=== PATIENT | female | born 1995 | race Caucasian/White ===

== ENCOUNTER 2022-04-02 08:44 | Outpatient (REF) | payer OTHER, SELFPAY ==
[2022-04-02 11:31] LABS: Hematocrit 36.6 % (37.0-47.0); Hemoglobin 12.2 g/dl (12.0-16.0); Mean Corpuscular HGB Conc 33.3 g/dl (31.0-35.0); Mean Corpuscular Hemoglobin 29.9 pg (27.0-33.0); Mean Corpuscular Volume 89.7 fL (80.0-98.0); Mean Platelet Volume 10.7 fL (9.4-12.3); Platelet Count 241 X10*3/uL (160-400); Red Blood Count 4.08 X10*6/uL (4.20-5.50); Red Cell Distribution Width 13.3 % (11.0-16.0); White Blood Count 4.9 X10*3/uL (4.8-10.8)
[2022-04-02 11:33] LABS: Alanine Aminotransferase 11 U/L (0-31); Albumin Level 4.5 g/dL (3.5-5.0); Alkaline Phosphatase 59 U/L (39-117); Anion Gap 12 (12-20); Aspartate Amino Transferase 17 U/L (5-31); Bilirubin Total 0.6 mg/dL (0.0-1.0); Blood Urea Nitrogen 11 mg/dL (9-16); Calcium 9.1 mg/dL (8.4-10.2); Carbon Dioxide 25 mmol/L (22-29); Chloride 106 mmol/L (96-108); Cholesterol 226 mg/dL; Estimated Glomerular Filt Rate > 60; Glucose Fasting 91 mg/dL (60-99); HDL Cholesterol 78 mg/dL; LDL Cholesterol Calculated 134 mg/dl; Potassium 3.9 mmol/L (3.3-5.1); Sodium 139 mmol/L (135-145); Total Protein 7.3 g/dL (6.5-8.0); Triglycerides 71 mg/dL
[2022-04-02 11:54] LABS: TSH reflex Free T4 2.05 uIU/mL (0.32-4.0)
[2022-04-07 15:46] LABS: Vitamin D 25-OH, D2 <4 ng/mL; Vitamin D 25-OH, D3 41 ng/mL; Vitamin D 25-OH, Total 41 ng/mL (30-100)
== END 2022-04-02 08:45 | disposition home or self-care (01) ==
LOC: HO.WFDLDS 08:44
PROVIDERS: Visit Provider Hospitalist
DX: Z00.00 Encounter for general adult medical examination without abnormal findings (principal); E55.9 Vitamin D deficiency, unspecified; Z13.220 Encounter for screening for lipoid disorders; Z13.29 Encounter for screening for other suspected endocrine disorder
CPT/HCPCS: 36415; 80053; 80061; 82306; 84443; 85027

== ENCOUNTER 2023-03-12 10:04 | Outpatient (REF) | payer OTHER, SELFPAY ==
[2023-03-12 12:16] LABS: Cholesterol 222 mg/dL; HDL Cholesterol 76 mg/dL; LDL Cholesterol Calculated 129 mg/dl; Triglycerides 89 mg/dL
== END 2023-03-12 10:05 | disposition home or self-care (01) ==
LOC: HO.WFDLDS 10:04
PROVIDERS: Visit Provider Hospitalist
DX: E78.00 Pure hypercholesterolemia, unspecified (principal)
CPT/HCPCS: 36415; 80061

== ENCOUNTER 2023-11-23 09:22 | Outpatient (AMB) | payer BC, SELFPAY ==
--- NOTE | 2023-11-23 09:26 | A.OFFPC_ITS ---
Vital Signs 11/23/23 09:27 Height 5 ft Weight 139 lb BMI 27.1 BP 112/58 L Blood Pressure Location Lt brachial Position Sitting Respiration 13 Pulse 98 Pulse Source Pulse Oximeter Pulse Oximetry (%) 99 Oxygen Delivery Method Room Air Intake Visit Reasons: follow up/ Referral Intake Note: Patient is here requesting a referral for OBGYN- Patient see's Alay[facility] in [place]. Patient reports she is 38 weeks right now and this is for billing purposes. Patient reports no other concerns at this time. 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 Accompanied by: Self / Same As Patient Allergies No Known Allergies Allergy (Verified 11/23/23 09:41) Medication List - Last Reconciled 11/23/23 by TYRONE FreedmanP- cholecalciferol (vitamin D3) 125 mcg PO DAILY docosahexaenoic acid ( DHA) mg PO ferrous sulfate (Feosol) 325 mg PO Q OTHER DAY magnesium oxide (Uro-Mag) 84.5 mg PO DAILY sertraline 100 mg PO DAILY sumatriptan succinate take 1 tab at onset of headache; if no relief, may repeat 1 tab after at least 2 hrs; max = 2 tabs/24 hrs PO; Tobacco use date assessed: 11/23/23 Dental Screening Dental Screen Date: 11/23/23 Did you have a dental visit in the last 12 months?: Yes Did you have a dental problem in the last 6 months where you did not have access to dental care?: No Was dental information given to patient?: Patient has dentist HPI HPI Comments History of Present Illness Details 28-year-old female with MDD, GERD, vitam in-D deficiency, migraine headache with aura, hyperlipidemia Specialists [facility] [address], [place] [address] Psychiatry Health Maintenance: Pap 2022 WNL Vaccines declined flu shot, Tdap 2022 Here today for complete physical exam Currently 38 weeks with baby 3. Another boy. May need a . Migraines with aura controlled during . Does admit return in the period. Reports that her psychiatrist is also a neurologist who helps to manage this. MDD stable on sertraline Vitamin-D deficiency taking meds as directed Lipid panel 03/12/2023, full set of labs 04/02/2022 REPLACED BY [facility] Medical History Constipation by delayed colonic transit Muscle spasms of neck Family History Father Pre-diabetes High blood pressure Migraines Mother High blood pressure Social History Household Members: Spouse Both parents involved: Yes Caregiver staying overnight: No Housing: House Are you a primary acute care nursing assistant to a significant other at home: No Do you presently have visiting nurse or other home services: No 75 years or older and lives alone: No Alcohol intake: never Comment: Patient Tobacco Use Status: Never used Tobacco e-Cigarette/Vaping Use: Never Used Second Hand Smoke Exposure: No service: No Current occupational status: employed Current occupational exposures/hazards: No Sexual orientation: Straight/Heterosexual Gender identity: Female Cognitive needs: No Hearing needs: No Vision needs: No Questionnaire PHQ-9 Over the last 2 weeks, how often have you been bothered by any of the following problems? 1. Little interest or pleasure in doing things: not at all 2. Feeling down, depressed, or hopeless: not at all 3. Trouble falling or staying asleep, or sleeping too much: not at all 4. Feeling tired or having little energy: not at all 5. Poor appetite or overeating: not at all 6. Feeling bad about yourself - or that you are a failure or have let yourself or your family down: not at all 7. Trouble concentrating on things, such as reading the newspaper or watching television: not at all 8. Moving or speaking so slowly that other people could have noticed. Or the opposite - being so fidgety or restless that you have been moving around a lot more than usual: not at all 9. Thoughts that you would be better off or of hurting yourself in some way: not at all Total score: 0 Depression Screening Interpretation: Negative Depression Screening [place]: [place] 11901 - PHQ-9 Billing: Yes Source: Developed by Drs. Servando Flores, Claire Hart, Adam Mcgee and colleagues, with an educational mckenzie from [employer]. Thrive Questionnaire Date Thrive assessed: 09/11/22 KATEY-7 AMB Questionnaire KATEY-7 Date KATEY - 7 assessed: 04/28/22 Feeling nervous, anxious, or on edge: 0 = Not at all Not being able to stop or control worryin = Not at all Worrying too much about different things: 0 = Not at all Trouble relaxin = Not at all Being so restless that it is hard to sit still: 0 = Not at all Becoming easily annoyed or irritable: 0 = Not at all Feeling afraid as if something awful might happen: 0 = Not at all Total KATEY-7 score (0-4 normal; 5-9 mild; 10-14 moderate; 15-21 severe): 0 Source: Developed by Drs. Servando Flores, Claire Hart, Adam Mcgee and colleagues, with an educational mckenzie from [employer]. KATEY-7 Assessment Billing KATEY-7 Assessment Tool: KATEY-7 Assessment 18148 Review of Systems Const Details: Constitutional: Denies fever. Skin: Denies rash. Eye: Denies eye pain. ENMT: Denies sore throat and nasal congestion. Respiratory: Denies shortness of breath and cough. Gastrointestinal: Denies nausea, vomiting or abdominal pain. Cardiovascular: Denies chest pain and syncope. Genitourinary: Denies dysuria. Musculoskeletal: Denies back pain and extremity pain. Neurologic: Denies headaches, confusion, and weakness. Psychiatric: Denies suicidal thoughts and substance abuse. Allergy/ Immunologic: Denies impaired immunity. Physical exam (Primary Care) Vital Signs: Last Vital Signs Pulse 98 11/23/23 09:27 Resp 13 11/23/23 09:27 BP 112/58 L 11/23/23 09:27 Pulse Ox 99 11/23/23 09:27 Oxygen Delivery Method Room Air 11/23/23 09:27 BMI result Body Mass Index 27.1 Tobacco/Smoking Status: Tobacco use Status Tobacco use date assessed 11/23/23 11/23/23 09:36 Patient Tobacco Use Status Never used Tobacco 11/23/23 09:36 e-Cigarette/Vaping Use Never Used 11/23/23 09:36 Depression Screening Interpretation: Negative Thrive Assessment: Date of Thrive Assessment Date Thrive assessed 12/08/22 02/19/24 09:36 Const Other: General: Well developed, well nourished, in no acute distress. Appears stated age. Head: Normocephalic, atraumatic. Eyes: Pupils are equal, round and reactive to light and accommodation. Conjunctivae are clear. Vision grossly normal. Ears: TMs clear AU, EACS WNL Nose: Patent, without discharge. Mouth: There are no ulcers or lesions noted. No inflammation, no post nasal drip, no plaques nor exudates. Neck: Supple, no adenopathy or thyromegaly. Lungs: Clear to auscultation bilaterally. No rales, rhonchi or wheeze noted. Good air flow in all guzman. Heart: Regular rate and rhythm. No murmurs, click, rubs or gallops are noted. Abdomen: Gravid abdomen Musculoskeletal: Joints are nontender, without swelling, redness, or effusions. Range of motion is observed to be normal. Pulses: Peripheral pulses are equal and palpable bilaterally. Extremities: No clubbing, cyanosis nor edema is noted. Neurologic: Gait and station normal. Cranial Nerves 2-12 intact. Motor strength grossly symmetrical and intact. No sensory loss. Balance normal. Skin: No rashes, ulcers, or lesions noted. Turgor is good. Skin color is good. Hair and nails are without abnormalities. Psych: Normal eye contact, affect and mood appropriate, and normal interactions. Patient is alert and appropriate to context. 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 Thirty-eight weeks . May require a C- section. Referral placed as needed (3) Vitamin D deficiency: Comment: Currently maintained vitamin-D 325 mcg daily. Continue Code(s): E55.9 - Vitamin D deficiency, unspecified (4) Migraine headache with aura: Comment: Psychiatry manages this. She is currently using sumatriptan as needed only. She does report trying propranolol in the past as a preventative with some relief. She has no migraines during . Advised to follow up with myself or Psychiatry if the migraines return and she needs assistance Code(s): G43.109 - Migraine with aura, not intractable, without status migrainosus Qualifiers: Status migrainosus presence: without status migrainosus Intractability: not intractable Qualified Code(s): G43.109 - Migraine with aura, not intractable, without status migrainosus (5) MDD (major depressive disorder): Comment: Managed on sertraline and active for Psychiatry Code(s): F32.9 - Major depressive disorder, single episode, unspecified Qualifiers: Major depression recurrence: recurrent Active/Remission status: currently active Major depression episode severity: mild Qualified Code(s): F33.0 - Major depressive disorder, recurrent, mild (6) KATEY (generalized anxiety disorder): Comment: Managed on sertraline and active with Psychiatry Code(s): F41.1 - Generalized anxiety disorder (7) Hyperlipidemia: Comment: Noted on labs in 2021 as well as 2022. We will need to look at this when she is not and follow up as needed. Code(s): E78.5 - Hyperlipidemia, unspecified Qualifiers: Hyperlipidemia type: mixed hyperlipidemia Qualified Code(s): E78.2 - Mixed hyperlipidemia Orders: Referrals REGISTERED NURSE FLOAT POOL Referral Z3A.38 - 38 weeks gestation of Review Flu Vaccine not done: patient reason Coding Level of Care Code Est Pt Prev Care 18-39y(21671) Diagnoses Normal physical exam Z00.00 38 weeks gestation of Z3A.38 Weeks of gestation: 38 weeks Vitamin D deficiency E55.9 Migraine with aura and without status migrainosus, not intractable G43.109 Status migrainosus presence: without status migrainosus Intractability: not intractable Mild episode of recurrent major depressive disorder F33.0 Major depression recurrence: recurrent Active/Remission status: currently active Major depression episode severity: mild KATEY (generalized anxiety disorder) F41.1 Mixed hyperlipidemia E78.2 Hyperlipidemia type: mixed hyperlipidemia Additional Codes KATEY-7 Assessment Billing - KATEY-7 Assessment Tool: KATEY-7 Assessment [id number] ([id number])
[2023-11-23 09:27] VITALS: BP 112/58; PULSE 98; RESP 13; O2SAT 99; BMI 27.1
== END 2023-11-23 09:50 | disposition home or self-care (01) ==
PROVIDERS: PCP Family Medicine; Visit Provider Nurse Practitioner Family
DX: Z00.00 Encounter for general adult medical examination without abnormal findings (principal); Z3A.38 38 weeks gestation of pregnancy; F33.0 Major depressive disorder, recurrent, mild; E55.9 Vitamin D deficiency, unspecified; G43.109 Migraine with aura, not intractable, without status migrainosus; F41.1 Generalized anxiety disorder; E78.2 Mixed hyperlipidemia
CPT/HCPCS: 99395

== ENCOUNTER 2024-12-02 09:19 | Outpatient (AMB) | payer BC, SELFPAY ==
--- NOTE | 2024-12-02 09:20 | A.OFFPC_ITS ---
Vital Signs 12/02/24 09:23 Height 50 ft Weight 112 lb 6 oz BMI 0.2 BP 102/64 Blood Pressure Location Lt brachial Position Sitting Respiration 12 Pulse 86 Pulse Source Pulse Oximeter Temp 96.9 F Temp Source Oral Pulse Oximetry (%) 97 Oxygen Delivery Method Room Air Intake Visit Reasons: PE Intake Note: annual physical Resident Medical Officer Required: No Allergies No Known Allergies Allergy (Verified 12/02/24 09:29) Medication List - Last Reconciled 12/02/24 by Edna Boyce, STEAM SHOVEL OPERATOR- [id number] 50-325-40 mg 1 tab PO Q6H PRN cholecalciferol (vitamin D3) 125 mcg PO DAILY docosahexaenoic acid ( DHA) mg PO ferrous sulfate (Feosol) 325 mg PO Q OTHER DAY magnesium oxide (Uro-Mag) 84.5 mg PO DAILY sertraline 100 mg PO DAILY sumatriptan succinate take 1 tab at onset of headache; if no relief, may repeat 1 tab after at least 2 hrs; max = 2 tabs/24 hrs PO; Tobacco use date assessed: 12/02/24 Dental Screening Dental Screen Date: 12/02/24 Did you have a dental visit in the last 12 months?: Yes Did you have a dental problem in the last 6 months where you did not have access to dental care?: No Was dental information given to patient?: Patient has dentist HPI HPI Comments History of Present Illness Details 29-year-old female with MDD, GERD, vitam in-D deficiency, migraine headache with aura, hyperlipidemia Surgery: None Family hx: no changes Social: , 3 children Specialists [facility] [address], [place] [address] Psychiatry - cleared Health Maintenance: Pap 2022 WNL Vaccines declined flu shot, Tdap 2022 - The patient is a 29-year-old female pr esenting for a complete physical examination. - History of major depressive disorder; mood reportedly stable, stopped psychiatry consultations. - Formerly diagnosed with vitamin D defi ciency; currently off vitamin D supplements, blood work planned. - Persistent migraine headaches; noting barometric pressure and hormonal triggers, uses sumatriptan and furocyst for management. - Diagnosed with hyperlipidemia, cholest karen evaluation scheduled. Health Maintenance - Immunizations up to date, including te tanus. - No flu shot taken during the visit. - Labs scheduled today - Patient portal registration for lab re sult access. - Depression screening negative. Review of Systems - Psychiatric: Denies anxiety, postpartu m depression, or mood instability. - Neurologic: Reports frequent migraines . - Dermatologic: Reports eczema, uses hyd rocortisone occasionally. - Musculoskeletal: Denies hip or low kyler k pain. - Gastrointestinal: Denies issues with b owel or urinary function. - Gynecologic: Reports normal menstrual periods. Physical Exam General: Well developed, well nourished, in no acute distress. Appears stated age. Head: Normocephalic, atraumatic. Eyes: Pupils are equal, round and reactive to light and accommodation. Conjunctivae are clear. Vision grossly normal. Ears: TMs clear AU, EACS WNL Nose: Patent, without discharge. Neck: Supple, no adenopathy or thyromegaly. Breast: Edu on SBE Lungs: Clear to auscultation bilaterally. No rales, rhonchi or wheeze noted. Good air flow in all guzman. Heart: Regular rate and rhythm. No murmurs, click, rubs or gallops are noted. Abdomen: Bowel sounds present in all quadrants. The abdomen is soft, nontender, with no masses or organomegaly noted. No hernias are noted. : Deferred. Reviewed recommendations for routine CREEL SELECTOR Pulses: Peripheral pulses are equal and palpable bilaterally. Extremities: No clubbing, cyanosis nor edema is noted. Neurologic: Gait and station normal. Cranial Nerves 2-12 intact. Motor strength grossly symmetrical and intact. No sensory loss. Balance normal. Skin: No rashes, ulcers, or lesions noted. Turgor is good. Skin color is good. Hair and nails are without abnormalities. Patient reports eczema, uses hydrocortisone occasionally. Psych: Normal eye contact, affect and mood appropriate, and normal interactions. Patient is alert and appropriate to context. Depression screen negative. Mood reported as good. Discussion Notes I discussed the current health status thoroughly with the patient alongside her ongoing management plans. We talked about her history of major depressive disorder, which appears stable, and she no longer requires psychiatric follow-up . Discussed her vitamin D deficiency; a lab test will determine if she needs to restart supplementation. Her continuing migraines and their triggers, like barometric pressure and hormones, require ongoing vigilance. Using sumatriptan and fiorecet, she manages these. We touched on her hyperlipidemia, with current labs planned to assess her cholesterol. Further updates will be provided via the patient portal. I reassured her regarding maintaining regular wellness visits, and utilizing walk-in services if needed. Assessment and Plan 1. Major Depressive Disorder: The patien t remains on sertraline with reports of stable mood. No current psychiatric intervention needed. 2. Vitamin D Deficiency: Plan reassessme nt through lab work. Future supplementation will depend on test outcomes. 3. Migraine Headache: Addressed through medication management with sumatriptan, and occasional use of furocyst. Identified environmental triggers such as barometric pressure are unavoidable. 4. Hyperlipidemia: Awaiting lab results to guide further management of hyperlipidemia. Patient Instructions - Continue current sertraline medication as prescribed; refill provided. - Await lab results and follow up if add itional supplements are needed. - For migraines, continue sumatriptan us e as needed; refill provided. - Access lab results through patient por mo and follow instructions provided in any subsequent communication. - Utilize walk-in clinics if immediate c are is needed. - RTO 1 year cPE sooner PRN Consent The patient consented to blood tests, including cholesterol profiling and vitamin D assessment. These were discussed considering her history and current health maintenance needs. Consent obtained directly from the patient. Patient was informed and verbally consented to the use of an ambient scribe for clinic note documentation during this visit. [facility] Medical History Constipation by delayed colonic transit Muscle spasms of neck Family History Father Pre-diabetes High blood pressure Migraines Mother High blood pressure Social History Household Members: Spouse Both parents involved: Yes Caregiver staying overnight: No Housing: House Are you a primary childcare attendant to a significant other at home: No Do you presently have visiting nurse or other home services: No 75 years or older and lives alone: No Alcohol intake: never Comment: Patient Tobacco Use Status: Never used Tobacco e-Cigarette/Vaping Use: Never Used Second Hand Smoke Exposure: No service: No Current occupational status: employed Current occupational exposures/hazards: No Sexual orientation: Straight/Heterosexual Gender identity: Female Cognitive needs: No Hearing needs: No Vision needs: No Questionnaire PHQ-9 Over the last 2 weeks, how often have you been bothered by any of the following problems? 1. Little interest or pleasure in doing things: not at all 2. Feeling down, depressed, or hopeless: not at all 3. Trouble falling or staying asleep, or sleeping too much: not at all 4. Feeling tired or having little energy: not at all 5. Poor appetite or overeating: not at all 6. Feeling bad about yourself - or that you are a failure or have let yourself or your family down: not at all 7. Trouble concentrating on things, such as reading the newspaper or watching television: not at all 8. Moving or speaking so slowly that other people could have noticed. Or the opposite - being so fidgety or restless that you have been moving around a lot more than usual: not at all 9. Thoughts that you would be better off or of hurting yourself in some way: not at all Total score: 0 Depression Screening Interpretation: Negative Depression Screening Done: Yes 82930 - PHQ-9 Billing: Yes Source: Developed by Drs. Servando Flores, Claire Hart, Adam Mcgee and colleagues, with an educational mckenzie from [employer]. Thrive Questionnaire Date Thrive assessed: 12/02/24 I am a: Patient What is your living situation today?: I have a steady place to live Within the past 12 months, did the food you bought not last and you didn't have the money to get more?: Never true Within the past 12 months, did you worry whether your food would run out before you got money to buy more?: Never true Do you have trouble paying for medicines?: No Do you have trouble getting transportation to medical appointments?: No Do you have trouble paying your heating and electricity bill?: No Do you have trouble taking care of your child, family member or friend?: No Do you have trouble with day-to-day activities such as bathing, preparing meals, shopping, managing finances, etc.?: No Are you currently unemployed and looking for a job?: No Are you interested in more education?: No Please select the resources that you would like help with: None Currently or been in a relationship where the following occur: No concerns reported THRIVE Score: 0 AUDIT C Alcohol Use Questionnaire (AUDIT-C) 1. How often do you have a drink containing alcohol?: Monthly or less 2. How many drinks containing alcohol do you have on a typical day when you are drinking?: 1 or 2 3. How often do you have six or more drinks on one occasion?: Never Total Score: 1 Score Reviewed/Action Taken: Yes KATEY-7 AMB Questionnaire KATEY-7 Date KATEY - 7 assessed: 12/02/24 Feeling nervous, anxious, or on edge: 0 = Not at all Not being able to stop or control worryin = Not at all Worrying too much about different things: 0 = Not at all Trouble relaxin = Not at all Being so restless that it is hard to sit still: 0 = Not at all Becoming easily annoyed or irritable: 0 = Not at all Feeling afraid as if something awful might happen: 0 = Not at all Total KATEY-7 score (0-4 normal; 5-9 mild; 10-14 moderate; 15-21 severe): 0 Source: Developed by Drs. Servando Flores, Claire Hart, Adam Mcgee and colleagues, with an educational mckenzie from [employer]. KATEY-7 Assessment Billing KATEY-7 Assessment Tool: KATEY-7 Assessment 54077 Physical exam (Primary Care) Vital Signs: Last Vital Signs Temp 96.9 F 12/02/24 09:23 Pulse 86 12/02/24 09:23 Resp 12 12/02/24 09:23 BP 102/64 12/02/24 09:23 Pulse Ox 97 12/02/24 09:23 Oxygen Delivery Method Room Air 12/02/24 09:23 BMI result Body Mass Index 0.2 Tobacco/Smoking Status: Tobacco use Status Tobacco use date assessed 12/02/24 12/02/24 09:24 Patient Tobacco Use Status Never used Tobacco 12/02/24 09:24 e-Cigarette/Vaping Use Never Used 12/02/24 09:24 PHQ-9: PHQ-9 Score PHQ-9: Total score 0 12/02/24 09:24 Depression Screening Interpretation: Negative Thrive Assessment: Date of Thrive Assessment Date Thrive assessed 12/02/24 12/02/24 09:24 Currently or been in a relationship where the following occur: No concerns reported Coding Level of Care Code Est Pt Prev Care 18-39y([id number]) Diagnoses Normal physical exam Z00.00 Vitamin D deficiency E55.9 Migraine with aura and without status migrainosus, not intractable G43.109 Intractability: not intractable Status migrainosus presence: without status migrainosus Mild episode of recurrent major depressive disorder F33.0 Active/Remission status: currently active Major depression episode severity: mild Major depression recurrence: recurrent Laboratory exam ordered as part of routine general medical examination Z00.00 Mixed hyperlipidemia E78.2 Hyperlipidemia type: mixed hyperlipidemia KATEY (generalized anxiety disorder) F41.1 Additional Codes KATEY-7 Assessment Billing - KATEY-7 Assessment Tool: KATEY-7 Assessment 95528 ([id number]) PHQ-9 - 22286 - PHQ-9 Billing: Yes ([id number]) Assessment & Plan Assessment & Plan (1) Normal physical exam: Code(s): Z00.00 - Encounter for general adult medical examination without abnormal findings Category: Medical (2) Vitamin D deficiency: Code(s): E55.9 - Vitamin D deficiency, unspecified Category: Medical (3) Migraine headache with aura: Comment: She is currently using sumatriptan as needed and firoecet. She does report trying propranolol in the past as a preventative with some relief. Code(s): G43.109 - Migraine with aura, not intractable, without status migrainosus Category: Medical Qualifiers: Intractability: not intractable Status migrainosus presence: without status migrainosus Qualified Code(s): G43.109 - Migraine with aura, not intractable, without status migrainosus (4) MDD (major depressive disorder): Comment: Managed on sertraline Code(s): F32.9 - Major depressive disorder, single episode, unspecified Category: Medical Qualifiers: Active/Remission status: currently active Major depression episode severity: mild Major depression recurrence: recurrent Qualified Code(s): F33.0 - Major depressive disorder, recurrent, mild (5) Laboratory exam ordered as part of routine general medical examination: Code(s): Z00.00 - Encounter for general adult medical examination without abnormal findings Category: Medical (6) Hyperlipidemia: Comment: Noted on labs in 2021 as well as 2022. Code(s): E78.5 - Hyperlipidemia, unspecified Category: Medical Qualifiers: Hyperlipidemia type: mixed hyperlipidemia Qualified Code(s): E78.2 - Mixed hyperlipidemia (7) KATEY (generalized anxiety disorder): Comment: Managed on sertraline Code(s): F41.1 - Generalized anxiety disorder Category: Medical Plan . Orders: Orders Vitamin D 25-OH Total Today E55.9 - Vitamin D deficiency, unspecified Ferritin Today Z00.00 - Encounter for general adult medical examination without abnormal findings IRON PROFILE Today Z00.00 - Encounter for general adult medical examination without abnormal findings Medications: Refilled sumatriptan succinate take 1 tab at onset of headache; if no relief, may repeat 1 tab after at least 2 hrs; max = 2 tabs/24 hrs PO; 14 tabs 8RF G43.109 - Migraine with aura, not intractable, without status migrainosus, M62.838 - Other muscle spasm sertraline 100 mg PO DAILY 90 tabs 3RF Patient Instructions: Health screenings for women You should visit your health care provider from time to time, even if you are healthy. The purpose of these visits is to: Screen for medical issues Assess your risk for future medical problems Encourage a healthy lifestyle Update vaccinations and other preventive care services Help you get to know your provider in case of an illness Information Even if you feel fine, you should still see your provider for regular checkups. These visits can help you avoid problems in the future. For example, the only way to find out if you have high blood pressure is to have it checked regularly. High blood sugar and high cholesterol levels also may not have any symptoms in the early stages. A simple blood test can check for these conditions. There are specific times when you should see your provider or receive specific health screenings. The [place] Preventive Services Task Force publishes a list of recommended screenings. Below are screening guidelines for women ages 18 to 39. BLOOD PRESSURE SCREENING Your blood pressure should be checked at least once every 3 to 5 years if: Your blood pressure is in the normal range (top number less than 120 mm Hg and bottom number less than 80 mm Hg) You don't have risk factors for high blood pressure Ask your provider if you need your blood pressure checked more often if: The top number is 120 to 129 mm Hg or the bottom number is 70 to 79 mm Hg You have diabetes, heart disease, kidney problems, are overweight, or have certain other health conditions You have a first-degree relative with high blood pressure You are Black You had high blood pressure during a If the top number is 130 mm Hg or greater or the bottom number is 80 mm Hg or greater, this is considered stage 1 hypertension. Schedule an appointment with your provider to learn how you can reduce your blood pressure. Watch for blood pressure screenings in your area. Ask your provider if you can stop in to have your blood pressure checked. BREAST CANCER SCREENING Experts do not agree about the benefits of breast self-exams in finding breast cancer or saving lives. Talk to your provider about what is best for you. A screening mammogram is not recommended for most women under age 40. Your provider may discuss and recommend mammograms, MRI scans, or ultrasounds if you have an increased risk for breast cancer, such as: A mother or sister who had breast cancer at a young age (most often starting screening earlier than the age the close relative was diagnosed) You carry a high-risk genetic marker CERVICAL CANCER SCREENING Cervical cancer screening should start at age 21 years unless your provider advises otherwise. After the first test: Women ages 21 through 29 should have a Pap test every 3 years. Exoprts do not agree on whether HPV testing is recommended for this age group. Women ages 30 through 65 should be screened with either a Pap test every 3 years or the HPV test every 5 years or both tests every 5 years (called cotesting ). Women who have been treated for precancer (cervical dysplasia) should continue to have Pap tests for 20 years after treatment or until age 65, whichever is longer. If you have had your uterus and cervix removed (total hysterectomy), and you have not been diagnosed with cervical cancer or precancer (high grade cervical neoplasia), you do not need cervical cancer screening. CHOLESTEROL SCREENING Cholesterol screening should begin at: Age 45 for women with no known risk factors for coronary heart disease Age 20 for women with known risk factors for coronary heart disease Repeat cholesterol screening should take place: Every 5 years for women with normal cholesterol levels More often if changes occur in lifestyle (including weight gain and diet) More often if you have diabetes, heart disease, kidney problems, or certain other conditions DIABETES SCREENING You should be screened for diabetes starting at age 35 and then repeated every 3 years if you have no risk factors for diabetes. Screening may need to start earlier and be repeated more often if you have other risk factors for diabetes, such as: You have a first degree relative with diabetes. You are overweight or have obesity. You have high blood pressure, prediabetes, or a history of heart disease. Screening for diabetes should be done if you are planning to become and you are overweight and have other risk factors such as high blood pressure. DENTAL EXAM Go to the dentist once or twice every year for an exam and cleaning. Your dentist will evaluate if you need more frequent visits. EYE EXAM Have an eye exam every 5 to 10 years before age 40. If you have vision problems, have an eye exam every 2 years or more often if recommended by your provider. You should have an eye exam that includes an examination of your retina (back of your eye) at least every year if you have diabetes. IMMUNIZATIONS Commonly needed vaccines include: Flu shot: get one every year. COVID-19 vaccine: ask your provider what is best for you. Tetanus-diphtheria and acellular pertussis (Tdap) vaccine: have one at or after age 19 as one of your tetanus-diphtheria vaccines if you did not receive it as an adolescent. Tetanus-diphtheria: have a booster (or Tdap) every 10 years. Varicella vaccine: receive 2 doses if you never had chickenpox or the varicella vaccine. Hepatitis B vaccine: receive 2, 3, or 4 doses, depending on your exact c ircumstances. Measles, mumps, and rubella (MMR) vaccine: receive 1 to 2 doses if you are not already immune to MMR. Your provider can tell you if you are immune. Ask your provider about the human papillomavirus (HPV) vaccine if: You have not received the HPV vaccine in the past You have not completed the full vaccine series (you should catch up on this shot) Ask your provider if you should receive other immunizations if you have certain health problems that increase your risk for some diseases such as pneumonia. INFECTIOUS DISEASE SCREENING Women who are sexually active should be screened for chlamydia and gonorrhea up until age 25. Women 25 years and older should be screened for chlamydia and gonorrhea if at high risk. Screening for hepatitis C: All adults ages 18 to 79 should get a one-time test for hepatitis C. people should be screened at every . Screening for human immunodeficiency virus (HIV): All people ages 15 to 65 should get a one-time test for HIV. Depending on your lifestyle and medical history, you may also need to be screened for infections such as syphilis and HIV, as well as other infections. PHYSICAL EXAM All adults should visit their provider from time to time, even if they are healthy. The purpose of these visits is to: Screen for disease Assess your risk of future medical problems Encourage a healthy lifestyle Update your vaccinations and other preventive care services Maintain a relationship with a provider in case of an illness Your height, weight, and BMI should be checked at every exam. During your exam, your provider may ask you about: Depression and anxiety Diet and exercise Alcohol and tobacco use Safety issues, such as using seat belts, smoke detectors, and intimate partner violence Your medicines and risk for interactions SKIN SELF-EXAM Your provider may check your skin for signs of skin cancer, especially if you're at high risk, such as if you: Have had skin cancer before Have close relatives with skin cancer Have a weakened immune system OTHER SCREENING Talk with your provider about colon cancer screening if you have a strong family history of colon cancer or polyps, or if you have had inflammatory bowel disease or polyps yourself. Routine bone density screening of women under 40 is not recommended.
[2024-12-02 09:23] VITALS: BP 102/64; PULSE 86; RESP 12; TEMP 36.1; O2SAT 97
== END 2024-12-02 09:40 | disposition home or self-care (01) ==
PROVIDERS: PCP Nurse Practitioner Family; Visit Provider Nurse Practitioner Family
DX: Z00.00 Encounter for general adult medical examination without abnormal findings (principal); E55.9 Vitamin D deficiency, unspecified; G43.109 Migraine with aura, not intractable, without status migrainosus; F33.0 Major depressive disorder, recurrent, mild; E78.2 Mixed hyperlipidemia; F41.1 Generalized anxiety disorder

== ENCOUNTER → 2024-12-02 09:19 | Outpatient (BNVA) | payer BC, SELFPAY | PROVIDERS: PCP Nurse Practitioner Family; Visit Provider Nurse Practitioner Family | DX: Z00.00 Encounter for general adult medical examination without abnormal findings (principal); E55.9 Vitamin D deficiency, unspecified; G43.109 Migraine with aura, not intractable, without status migrainosus; F33.0 Major depressive disorder, recurrent, mild; E78.2 Mixed hyperlipidemia; F41.1 Generalized anxiety disorder; Z79.899 Other long term (current) drug therapy | CPT/HCPCS: 96127 ==

== ENCOUNTER 2024-12-02 09:47 | Outpatient (REF) | payer BC, SELFPAY ==
[2024-12-02 11:11] LABS: Hematocrit 36.9 % (37.0-47.0); Hemoglobin 12.1 g/dl (12.0-16.0); Mean Corpuscular HGB Conc 32.8 g/dl (31.0-35.0); Mean Corpuscular Hemoglobin 29.4 pg (27.0-33.0); Mean Corpuscular Volume 89.8 fL (80.0-98.0); Mean Platelet Volume 10.6 fL (9.4-12.3); Platelet Count 225 X10*3/uL (160-400); Red Blood Count 4.11 X10*6/uL (4.20-5.50); Red Cell Distribution Width 13.1 % (11.0-16.0); White Blood Count 4.6 X10*3/uL (4.8-10.8)
[2024-12-02 11:16] LABS: Estimated Average Glucose 105 mg/dL; Hemoglobin A1c % 5.3 % (<6.0); Total Hemoglobin (HGBA1C) 3203.1027 umol/L
[2024-12-02 11:39] LABS: Alanine Aminotransferase 13 U/L (0-31); Albumin Level 4.3 g/dL (3.5-5.0); Alkaline Phosphatase 61 U/L (39-117); Anion Gap 10 (12-20); Aspartate Amino Transferase 19 U/L (5-31); Bilirubin Total 0.5 mg/dL (0.0-1.0); Blood Urea Nitrogen 16 mg/dL (9-16); Calcium 8.9 mg/dL (8.4-10.2); Carbon Dioxide 27 mmol/L (22-29); Chloride 108 mmol/L (96-108); Cholesterol 197 mg/dL (<200); Estimated Glomerular Filt Rate > 60; Glucose Random 89 mg/dL (60-115); HDL Cholesterol 79 mg/dL (>40); Iron 135 mcg/dL (30-160); LDL Cholesterol Calculated 105 mg/dL (<100); Percent Iron Saturation 52 % (15-50); Potassium 3.8 mmol/L (3.3-5.1); Sodium 141 mmol/L (135-145); Total Iron Binding Capacity 260 mcg/dL (228-428); Total Protein 7.4 g/dL (6.5-8.0); Triglycerides 67 mg/dL (<150); Unsaturated Iron Binding 125 ug/dL
[2024-12-02 11:42] LABS: Creatinine Urine 211.38 mg/dL; Microalbum/Creatinine Ratio Ur 5.6 ug/mg cr (<30)
[2024-12-02 12:03] LABS: Ferritin 17 ng/mL (10-122); TSH reflex Free T4 1.38 uIU/mL (0.32-4.0); Vitamin D 25-OH Total 26.6 ng/mL (>30)
[2024-12-02 12:10] LABS: Vitamin B12 436 pg/mL (200-900)
== END 2024-12-02 09:48 | disposition home or self-care (01) ==
LOC: HO.WFDLDS 09:47
PROVIDERS: Visit Provider Nurse Practitioner Family
DX: Z00.00 Encounter for general adult medical examination without abnormal findings (principal); E55.9 Vitamin D deficiency, unspecified; Z13.220 Encounter for screening for lipoid disorders; Z13.1 Encounter for screening for diabetes mellitus; Z13.29 Encounter for screening for other suspected endocrine disorder; Z13.0 Encounter for screening for diseases of the blood and blood-forming organs and certain disorders involving the immune mechanism
CPT/HCPCS: 36415; 80053; 80061; 82043; 82306; 82570; 82607; 82728; 82746; 83036; 83540; 84443; 85027